=== PATIENT | female | born 1950 | race Caucasian/White ===

== ENCOUNTER → 2019-10-23 | Outpatient (CLI) | payer OTHER ==
[~2019-10-23] MED LIST: ASPI81CH
== END | disposition home or self-care (01) ==
LOC: PLD 13:35 → LAB SHORT 13:35
DX: N95.0 Postmenopausal bleeding (principal)
CPT/HCPCS: 88305

== ENCOUNTER → 2020-08-17 | Outpatient (CLI) | payer OTHER ==
[~2020-08-17] MED LIST changes: +CENTRUM SILVER1 EAC2; +CO Q-10100 MG; +FISH OIL 1,0001 EAC7; +MAGNESIUM
== END ==
LOC: LAB SHORT 07:44 → LAB EV 07:44
DX: L30.8 Other specified dermatitis (principal); D48.5 Neoplasm of uncertain behavior of skin
CPT/HCPCS: 88312

== ENCOUNTER → 2020-08-17 | Outpatient (CLI) | payer OTHER | LOC: LAB SHORT 18:42 → LAB 18:42 | DX: L30.9 Dermatitis, unspecified (principal) | CPT/HCPCS: 87070; 87205 ==

== ENCOUNTER → 2021-09-23 | Outpatient (CLI) | payer OTHER ==
[~2021-09-23] MED LIST changes: +CIDAFLEX TABLE1 EAC1 PO; +Vitamin B Comple1 EA PO
[2021-09-23 19:00] LABS: Source, Urine Clean Catch
[2021-09-23 19:59] LABS: Appearance, Urine Hazy (Clear); Bilirubin, Urine Neg (Neg); Blood, Urine 3+ (Neg); Color, Urine Yellow (P-Yellow); Glucose Qualitative, Urine Neg (Neg); Ketones, Urine Neg (Neg); Leukocyte Esterase, Urine Neg (Neg); Nitrite, Urine Neg (Neg); Protein, Urine Neg (Neg); Specific Gravity, Urine 1.015 (1.003-1.022); Urobilinogen, Urine NORM (Normal); pH, Urine 6.5 (5.0-8.0)
[2021-09-23 21:15] LABS: White Blood Cells, Urine 0-2 /hpf (0-5)
[2021-09-23 21:16] LABS: Amorphous Mod (0-Heavy); Bacteria Few /hpf; Squamous Epithelial Cells Rare /hpf (Few)
== END | disposition home or self-care (01) ==
LOC: LAB 16:41 → LAB SHORT 16:41
PROVIDERS: Obstetrics & Gynecology
DX: Z01.812 Encounter for preprocedural laboratory examination (principal)
CPT/HCPCS: 81001

== ENCOUNTER 2021-09-28 11:07 | Day surgery (SDC) | payer OTHER ==
[~2021-09-28] VITALS: Ht 154.9 cm; Wt 76.4 kg
[2021-09-28] MEDS ORDERED: PRED20 (11:47)
--- NOTE | 2021-09-28 12:14 | NUR ---
09/28/21 1214 Latosha Crenshaw CALL LIGHT WITHIN REACH
--- NOTE | 2021-09-28 13:10 | NUR ---
09/28/21 1310 Nataliia Cardenas 52CC NACL FLUID DEFICIT.
== END 2021-09-28 14:05 | disposition home or self-care (01) ==
LOC: ORSCSDS 11:07
PROVIDERS: Obstetrics & Gynecology
PROC: 0UDB8ZX Extraction of Endometrium, Via Natural or Artificial Opening Endoscopic, Diagnostic (ICD-10-PCS; principal; 2021-09-28 12:30)
DX: N95.0 Postmenopausal bleeding (principal); R93.89 Abnormal findings on diagnostic imaging of other specified body structures; I48.92 Unspecified atrial flutter; Z79.899 Other long term (current) drug therapy; Z79.82 Long term (current) use of aspirin
CPT/HCPCS: 88305; J1100; J1885; J2250; J2405; J2704; J3010